=== PATIENT | male | born 1970 | race Caucasian/White ===

== ENCOUNTER 2023-03-12 12:45 | Emergency (ER) | payer MEDICAID ==
[~2023-03-12] VITALS: Ht 167.6 cm; Wt 70.0 kg
[2023-03-12 12:49] VITALS: BP 169/85; PULSE 81; RESP 16; TEMP 98.4; O2SAT 99
[2023-03-12] MEDS ORDERED: ONDANSETRON HCL 4MG/2ML INJ IV STA (12:53)
[2023-03-12] MEDS ORDERED: SODIUM CHLORIDE 0.9% 1,000 ML IV ONE (13:00)
== END 2023-03-12 18:07 | disposition home or self-care (01) ==
LOC: ER 13:20
DX: T40.601A Poisoning by unspecified narcotics, accidental (unintentional), initial encounter (principal); Y92.9 Unspecified place or not applicable
CPT/HCPCS: 96361; 96374; 99283; J2405; J7030; Z7610